=== PATIENT | female | born 1985 | race Two or more races ===

== ENCOUNTER 2018-02-11 13:55 | Emergency (ER) | payer MEDICAID ==
[~2018-02-11] VITALS: Ht 162.6 cm; Wt 78.5 kg
[2018-02-11 14:04] VITALS: Ht 162.6 cm; Wt 78.5 kg
[2018-02-11 17:02] VITALS: BP 122/85
== END 2018-02-11 17:02 | disposition home or self-care (01) ==
LOC: ED 13:55
DX: M54.2 Cervicalgia (principal); M54.5 Low back pain; R06.02 Shortness of breath
CPT/HCPCS: J1885

== ENCOUNTER 2018-05-28 16:57 | Emergency (ER) | payer MEDICAID ==
[~2018-05-28] VITALS: Ht 157.5 cm; Wt 79.1 kg
[2018-05-28 17:03] VITALS: BP 138/89
[2018-05-28 17:34] LABS: UA SPECIFIC GRAVITY >=1.030 (1.005-1.035); urine erythrocyte NEGATIVE (NEGATIVE)
[2018-05-28 17:35] LABS: microscopic required? YES
== END 2018-05-28 17:47 | disposition home or self-care (01) ==
LOC: ED 16:57
PROVIDERS: Emergency Medicine
DX: N39.0 Urinary tract infection, site not specified (principal); M54.5 Low back pain; I10 Essential (primary) hypertension; Z98.890 Other specified postprocedural states

== ENCOUNTER 2019-08-07 05:59 | Emergency (ER) | payer MEDICAID ==
[~2019-08-07] VITALS: Ht 157.5 cm; Wt 79.4 kg
[2019-08-07 06:06] VITALS: Ht 157.5 cm; Wt 79.4 kg
[2019-08-07 09:30] VITALS: BP 128/74
== END 2019-08-07 09:30 | disposition home or self-care (01) ==
LOC: ED 05:59
DX: J98.01 Acute bronchospasm (principal); R07.89 Other chest pain; E66.9 Obesity, unspecified; Z68.32 Body mass index [BMI] 32.0-32.9, adult; Z98.890 Other specified postprocedural states
CPT/HCPCS: 87804; J2930; J7613; J7644

== ENCOUNTER 2020-07-06 14:51 | Emergency (ER) | payer MEDICAID, SELFPAY ==
[~2020-07-06] VITALS: Ht 157.5 cm; Wt 75.7 kg
[2020-07-06 14:54] VITALS: Ht 157.5 cm; Wt 75.7 kg
[2020-07-06 16:52] VITALS: BP 136/91
== END 2020-07-06 16:52 | disposition home or self-care (01) ==
LOC: ED 14:51
DX: U07.1 COVID-19 (principal); Z98.890 Other specified postprocedural states; Z90.49 Acquired absence of other specified parts of digestive tract
CPT/HCPCS: U0003